=== PATIENT | female | born 1955 | race Caucasian/White ===

== ENCOUNTER 2016-07-13 09:22 | Day surgery (SDC) | payer OTHER ==
[~2016-07-13] VITALS: Ht 167.6 cm; Wt 83.5 kg
[2016-07-13] MEDS ORDERED: LEVOTHYROXINE (09:52)
[2016-07-13 09:54] VITALS: Ht 167.6 cm; Wt 83.5 kg
[2016-07-13 10:18] VITALS: BP 122/59; PULSE 57; RESP 12
[2016-07-13] MEDS ORDERED: FENTAnyl 50 MCG/ML VIAL ONE (10:55)
[2016-07-13] MEDS ORDERED: MIDAZOLAM 1 MG/ML 2 ML INJ ONE ×2 (10:55)
[2016-07-13 11:32] VITALS: BP 115/60; PULSE 57; RESP 13
--- NOTE | 2016-07-15 03:12 | GILP ---
DATE OF PROCEDURE: NAME OF PROCEDURE: Colonoscopy. PREOPERATIVE DIAGNOSIS: Rule out colon polyps. POSTOPERATIVE DIAGNOSES: 1. A 3 mm polyp noted in the mid transverse colon. This was removed with a cold biopsy forceps. 2. Diverticulosis. 3. Internal and external hemorrhoids. DESCRIPTION OF PROCEDURE: After informed written consent was obtained, the patient was asked to lie on the left lateral side. Intravenous anesthesia was given as noted in the nursing notes. When th e patient became somnolent, the Olympus video colonoscope was introduced into the rectum and scope w as advanced all the way to the cecum. A 3 mm flat polyp was noted in the mid transverse colon. Thi s was removed with a cold biopsy forceps. Diverticulosis was found to be scattered all along the co timmy. At this time, procedure scope was withdrawn from the cecum. No additional abnormalities detected. Minimal internal and minimal external hemorrhoids were noted when the scope was withdraw n and the procedure was terminated. PLAN: Recommend repeat colonoscopy in 5 years. Dictated By: TRISTEN CASTRO/SHAHEEN Conf#: [id number] DID#: [id number]
== END 2016-07-13 14:25 | disposition home or self-care (01) ==
LOC: GIL 09:22
PROVIDERS: ATTEND Internal Medicine Gastroenterology
DX: Z12.11 Encounter for screening for malignant neoplasm of colon (principal); K63.5 Polyp of colon; K64.4 Residual hemorrhoidal skin tags; K57.90 Diverticulosis of intestine, part unspecified, without perforation or abscess without bleeding; K64.8 Other hemorrhoids
CPT/HCPCS: 45380; 88305; J2250; J3010; Z7610

== ENCOUNTER 2017-04-23 05:14 | Emergency (ER) | payer OTHER ==
[~2017-04-23] VITALS: Ht 162.6 cm; Wt 83.9 kg
[~2017-04-23 05:14] MED LIST: LEVOTHYROXINE
[2017-04-23 05:17] VITALS: Ht 162.6 cm; Wt 83.9 kg
[2017-04-23 05:42] LABS: URINE BLOOD (Dip) POC Negative (NEGATIVE)
[2017-04-23] MEDS ORDERED: CEPH-443 PO (06:09)
[2017-04-23] MEDS ORDERED: PHEN-538 PO (06:10)
--- NOTE | 2017-04-23 09:07 | ERD ---
ER Documentation Chief Complaint Chief Complaint PT IN C/O PELVIC PAIN X 3 DAYS. HPI This is a 61-year-old female presenting to the emergency department complaining of mild pelvic pain and painful urination for the past 2 days. Patient denies any fevers, flank pain, hematuria. Patient states that she has tried Azo over- the-counter without much relief ROS All systems reviewed and are negative except as per history of present illness. Medications Home Meds Active Scripts Phenazopyridine Hcl* (Pyridium*) 200 Mg Tab, 200 MG PO TID Y for URINARY PAIN, # 10 TAB Prov:JAJA SCHERER PA-C 04/23/17 Cephalexin* (Keflex*) 500 Mg Capsule, 500 MG PO BID for 7 Days, CAP Prov:JAJA SCHERER PA-C 04/23/17 Reported Medications [Levothyroxine] No Conflict Check 07/13/16 Allergies Allergies: Uncoded Allergies: PENICILLIN (Allergy, Mild, rash, 08/21/14) PMhx/Soc History of Surgery: Yes (hysterectomy, throat surgery) Anesthesia Reaction: No Hx Neurological Disorder: No Hx Respiratory Disorders: No Hx Cardiac Disorders: No Hx Psychiatric Problems: No Hx Miscellaneous Medical Probl: Yes (hypothyroid) Hx Alcohol Use: Yes Hx Substance Use: No Hx Tobacco Use: No Smoking Status: Never smoker Physical Exam Vitals Vital Signs Date Time Temp Pulse Resp B/P Pulse Ox O2 Delivery O2 Flow Rate FiO2 04/23/17 05:17 97.8 66 18 120/65 95 Physical Exam Const: Well-developed well-nourished no acute distress Head: Atraumatic Eyes: Normal Conjunctiva ENT: Normal External Ears, Nose and Mouth. Neck: Full range of motion..~ No meningismus. Resp: Clear to auscultation bilaterally Cardio: Regular rate and rhythm, no murmurs Abd: Tender palpation in the suprapubic region Skin: No petechiae or rashes Back: No midline or flank tenderness Ext: No cyanosis, or edema Neur: Awake and alert Psych: Normal Mood and Affect Results 24 hrs Laboratory Tests Test 04/23/17 05:40 Bedside Urine pH (LAB) 5.0 Bedside Urine Protein (LAB) Negative Bedside Urine Glucose (UA) 0.25% Bedside Urine Ketones (LAB) Trace Bedside Urine Blood Negative Bedside Urine Nitrite (LAB) Positive Bedside Urine Leukocyte Esterase (L Negative Procedures/MDM This is a 61-year-old female presenting to the emergency department with mild pelvic pain and dysuria for the past 2 days, due to a urinary tract infection. No evidence of pyelonephritis or nephrolithiasis. Patient is stable to be discharged home with prescription for Keflex and Pyridium. Discussed to follow- up with her primary care physician. She understands and agrees with this plan Departure Diagnosis: Primary Impression: UTI (urinary tract infection) Condition: Stable Patient Instructions: Understanding Urinary Tract Infections (UTIs) Additional Instructions: Call your primary care doctor TOMORROW for an appointment during the next 1-2 days.See the doctor sooner or return here if your condition worsens before your appointment time. Take all medicines as directed. Return to this facility if you are not improving as expected. Mims toda la medicina tana y papa se le indic. Regrese a estas instalaciones si no se mejora papa esperbamos o papa le dijimos. Regrese a estas instalaciones si no se mejora papa esperbamos o papa le dijimos. JAJA SCHERER PA-C Apr 23, 2017 09:07
== END 2017-04-23 06:56 | disposition home or self-care (01) ==
LOC: FTE 05:14
DX: N39.0 Urinary tract infection, site not specified (principal); E03.9 Hypothyroidism, unspecified
CPT/HCPCS: 81003; Z7502; 99283